=== PATIENT | female | born 1980 | race American Indian/Alaskan Native ===

== ENCOUNTER 2019-02-17 08:06 | Emergency (ER) | payer SELFPAY ==
[2019-02-17 08:11] VITALS: BP 113/78
[2019-02-17] MEDS ORDERED: IBUPROFEN 800 MG TAB PO ONE (08:25)
--- NOTE | 2019-02-17 08:32 | Emergency Department Report ---
ED Lower Extremity HPI - General Chief Complaint: Fall Stated Complaint: RT HIP PAIN Time Seen by Provider: 02/17/19 08:22 Source: patient Mode of arrival: Ambulatory Limitations: No Limitations - History of Present Illness Initial Comments: Mrs. Cordova is a 38 yo female who presents with 6 months of right hip pain. Pain is worse after fall in shower last night. No hx of direct trauma. No new exercise. No past significant medical hx. MD Complaint: other (hip pain for 6 months hx of fall last night) -: Gradual, month(s) (6) Injury: Hip: Right Type of Injury: other (fall) Place: home Severity: moderate Severity scale (0 -10): 7 Worsens With: movement, palpation Context: fall Associated Symptoms: able to partially bear weight - Related Data Previous Rx's Medication Instructions Recorded Last Taken Type Ibuprofen [Motrin 400 MG tab] 400 mg PO TID 7 Days #21 tablet 02/17/19 Unknown Rx Allergies Allergy/AdvReac Type Severity Reaction Status Date / Time No Known Allergies Allergy Unverified 02/17/19 08:07 ED Review of Systems ROS: Stated complaint: RT HIP PAIN Other details as noted in HPI Constitutional: denies: fever, malaise Gastrointestinal: denies: abdominal pain, nausea, vomiting Musculoskeletal: arthralgia. denies: back pain, joint swelling Skin: denies: rash, lesions Neurological: denies: numbness, paresthesias ED Past Medical Hx - Past Medical History Previous Medical History?: No - Surgical History Past Surgical History?: No - Social History Smoking Status: Never Smoker Substance Use Type: None - Medications Home Medications: Home Medications Medication Instructions Recorded Confirmed Last Taken Type Ibuprofen [Motrin 400 MG tab] 400 mg PO TID 7 Days #21 tablet 02/17/19 Unknown Rx ED Physical Exam - General Limitations: No Limitations General appearance: alert, in no apparent distress - Head Head exam: Present: atraumatic, normocephalic - Eye Eye exam: Present: normal appearance - ENT ENT exam: Present: mucous membranes moist - Neck Neck exam: Present: normal inspection, full ROM - Respiratory Respiratory exam: Absent: respiratory distress - Extremities Exam Extremities exam: Present: tenderness - Expanded Lower Extremity Exam Right Hip exam: Present: normal inspection, full ROM, tenderness. Absent: swelling, abrasion, deformity, crepidus, dislocation Upper Leg exam: Present: normal inspection, full ROM. Absent: tenderness Knee exam: Present: normal inspection, full ROM. Absent: tenderness Lower Leg exam: Present: normal inspection, full ROM. Absent: tenderness ED Course Vital Signs 02/17/19 08:09 Temperature 98.9 F Pulse Rate 70 Respiratory 17 Rate Blood Pressure 113/78 O2 Sat by Pulse 98 Oximetry ED Lower Extremity MDM - Radiology Data Radiology results: report reviewed X-ray of the right hip reveal chronic deformity with sclerosis lytic change class of articular surface findings constitute avascular necrosis - Medical Decision Making Mrs. Cordova presents with 6 months of right hip pain. DDX: bursitis vs OA vs lumbar radiculopathy versus avascular necrosis I do not suspect septic arthritis on this presentation. I reviewed the radiology impression. I personally reviewed the radiology images. She has findings of avascular necrosis. I have provided extensive education with the patient and her significant other at the bedside. I have prescribed Ibuprofen scheduled therapy. I strongly recommended evaluation by orthopedic surgeon. He will need long-term care. Critical care attestation.: If time is entered above; I have spent that time in minutes in the direct care of this critically ill patient, excluding procedure time. ED Disposition Clinical Impression: Acute right hip pain, Avascular necrosis of bone of right hip Disposition: DC-01 TO HOME OR SELFCARE Is pt being admited?: No Does the pt Need Aspirin: No Condition: Stable Additional Instructions: Please see our orthopedic surgeon for further testing. You will need many further tests and lifelong treatment Prescriptions: Ibuprofen [Motrin 400 MG tab] 400 mg PO TID 7 Days #21 tablet Referrals: ELEANOR PINZON MD [Staff Physician] - 3-5 Days [facility] [Outside] - 3-5 Days
--- NOTE | 2019-02-17 09:17 | XRay Report ---
RIGHT HIP 2 VIEWS. INDICATION / CLINICAL INFORMATION: hip pain hx of fall COMPARISON: None available. FINDINGS: BONES / JOINT(S): Chronic deformity at the right hip with sclerosis, lytic change and collapse of the articular surface superiorly. The findings may represent long-standing changes associated with avasc ular necrosis. The left hip is normal. SOFT TISSUES: No significant abnormality. ADDITIONAL FINDINGS: None. Signer Name: Chacorta Britt MD Signed: 02/17/2019 9:12 AM Workstation Name: [id number] ([id number]
== END 2019-02-17 09:51 | disposition home or self-care (01) ==
LOC: ED 08:06
DX: M87.9 Osteonecrosis, unspecified (principal); M25.551 Pain in right hip